=== PATIENT | male | born 1985 | race Caucasian/White ===

== ENCOUNTER 2018-10-11 16:32 | Emergency (ER) | payer SELFPAY ==
[~2018-10-11] VITALS: Ht 185.4 cm; Wt 75.0 kg
[2018-10-11 16:52] VITALS: BP 154/74; PULSE 108; RESP 18; Ht 185.4 cm; Wt 75.0 kg
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
[2018-10-11] MEDS ORDERED: IBUP800T48 PO (22:18)
[2018-10-13] MEDS ORDERED: AMOX1TAB10 PO (11:04)
[2018-10-13] MEDS ORDERED: SULF1TAB31 PO (11:04)
== END 2018-10-12 01:34 | disposition left against medical advice (07) ==
LOC: FTE 16:32
DX: S00.11XA Contusion of right eyelid and periocular area, initial encounter (principal); Y04.8XXA Assault by other bodily force, initial encounter
CPT/HCPCS: 70450; 70486; 72125

== ENCOUNTER 2018-10-13 09:59 | Emergency (ER) | payer SELFPAY ==
[~2018-10-13] VITALS: Ht 152.4 cm; Wt 77.1 kg
[~2018-10-13 09:59] MED LIST: IBUP800T48 PO
[2018-10-13 10:00] VITALS: BP 121/71; PULSE 78; RESP 18; Ht 152.4 cm; Wt 77.1 kg
[2018-10-13] MEDS ORDERED: TRIMETHOPRIM/SULFAMETHOX (DS) TAB PO ONE (11:00)
[2018-10-13] MEDS ORDERED: SOD CHLORIDE 0.9% 1,000 ML IV ONE (11:00)
[2018-10-13] MEDS ORDERED: AMOXICILLIN/CLAV 875 MG TAB PO ONE (11:00)
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
[2018-10-13] MEDS ORDERED: AMOX1TAB10 PO (11:04)
[2018-10-13] MEDS ORDERED: SULF1TAB31 PO (11:04)
== END 2018-10-13 11:16 | disposition left against medical advice (07) ==
LOC: FTE 09:59
DX: S00.11XA Contusion of right eyelid and periocular area, initial encounter (principal); H44.001 Unspecified purulent endophthalmitis, right eye; F17.210 Nicotine dependence, cigarettes, uncomplicated; Y08.89XA Assault by other specified means, initial encounter
CPT/HCPCS: 99283; J7030

== ENCOUNTER 2018-10-23 11:13 | Emergency (ER) | payer SELFPAY ==
[2018-10-13 10:00] VITALS: BMI 33.2
[~2018-10-23 11:13] MED LIST changes: +AMOX1TAB10 PO; +SULF1TAB31 PO
== END 2018-10-23 11:49 | disposition left against medical advice (07) ==
LOC: E/R 11:13
DX: Z53.21 Procedure and treatment not carried out due to patient leaving prior to being seen by health care provider (principal)

== ENCOUNTER 2018-12-17 11:16 | Emergency (ER) | payer SELFPAY ==
[~2018-12-17] VITALS: Wt 80.0 kg
[2018-12-17 11:19] VITALS: BP 160/78; PULSE 81; RESP 18
== END 2018-12-17 12:51 | disposition left against medical advice (07) ==
LOC: FTE 11:16
DX: Z53.21 Procedure and treatment not carried out due to patient leaving prior to being seen by health care provider (principal)

== ENCOUNTER 2018-12-22 21:33 | Emergency (ER) | payer BC ==
[~2018-12-22] VITALS: Ht 182.9 cm; Wt 70.4 kg
[2018-12-22 21:42] VITALS: BP 121/83; Ht 182.9 cm; Wt 70.4 kg
[2018-12-22] MEDS ORDERED: AMOX500C2 PO (23:25)
[2018-12-22] MEDS ORDERED: IBUP-1542 PO (23:25)
[2018-12-23 00:39] VITALS: PULSE 75; RESP 20
--- NOTE | 2018-12-23 00:57 | ERD ---
ER Documentation Chief Complaint Chief Complaint toothache x 3 days HPI 33-year-old male presented to the emergency department complaining of right upper molar pain intermittently for the past 3 days. He reports a sharp sensation which is constant and rated 8/10 in severity. He denies any fevers. He tried no medication for relief of symptoms. He denies any fevers, chills, or other symptoms at this time. ROS All systems reviewed and are negative except as per history of present illness. Medications Home Meds Active Scripts Ibuprofen* (Motrin*) 600 Mg Tab, 600 MG PO Q6, #30 TAB Prov:MARLEN ALVARADO PA-C 12/22/18 Amoxicillin* (Amoxicillin*) 500 Mg Cap, 500 MG PO TID for 10 Days, CAP Prov:MARLEN ALVARADO PA-C 12/22/18 Sulfamethoxazole/Trimethoprim* (Bactrim Ds* Tablet) 1 Each Tablet, 1 TAB PO BID, #20 TAB Prov:TRINA ONEIL PA-C 10/13/18 Amoxicillin/Potassium Clav (Amox-Clav 875-125 mg Tablet) 875-125 mg Tab, 1 TAB PO BID for 10 Days, #20 TAB Prov:TRINA OENIL PA-C 10/13/18 Ibuprofen* (Motrin*) 800 Mg Tab, 800 MG PO Q6H PRN for PAIN AND OR ELEVATED TEMP, #30 TAB Prov:BORIS VILLEGAS 10/11/18 Allergies Allergies: Coded Allergies: No Known Allergy (Unverified , 12/22/18) PMhx/Soc Medical and Surgical Hx: pt denies Medical Hx, pt denies Surgical Hx Hx Alcohol Use: No Hx Substance Use: Yes (MARIJUANA, METH) Hx Tobacco Use: No Smoking Status: Current some day smoker FmHx Family History: No diabetes Physical Exam Vitals Vital Signs Date Temp Pulse Resp B/P (MAP) Pulse Ox O2 O2 Flow FiO2 Time Delivery Rate 12/23/18 99.2 75 20 97 Room Air 00:39 12/22/18 99.3 71 16 121/83 100 21:42 (96) Physical Exam Const: No acute distress Head: Atraumatic Eyes: Normal Conjunctiva ENT: Normal External Ears, Nose and Mouth. Poor dentition. Missing teeth noted to the right upper molar region. Possible early dental abscess noted to the right upper molars. Neck: Full range of motion. No meningismus. Resp: Clear to auscultation bilaterally Cardio: Regular rate and rhythm, no murmurs Skin: No petechiae or rashes Back: No midline or flank tenderness Ext: No cyanosis, or edema Neur: Awake and alert Psych: Normal Mood and Affect Procedures/MDM 33-year-old male presenting to the emergency department complaining of dental pain. Examination is consistent with possible early dental abscess. No evidence of facial cellulitis. There is no tenderness to the mandibular region. I doubt sepsis. Patient is nontoxic and well-appearing. Patient is stable appropriate for discharge and further outpatient management. He was in agreement with the diagnosis, plan, need for follow-up, return precautions. All questions and concerns were addressed prior to discharge. Departure Diagnosis: Primary Impression: Pain, dental Condition: Fair Patient Instructions: Dental Pain Additional Instructions: Call your primary care doctor TOMORROW for an appointment during the next 1-2 days.See the doctor sooner or return here if your condition worsens before your appointment time. MARLEN ALVARADO PA-C Dec 23, 2018 00:57
== END 2018-12-23 00:40 | disposition home or self-care (01) ==
LOC: FTE 21:33
DX: K08.89 Other specified disorders of teeth and supporting structures (principal); F17.210 Nicotine dependence, cigarettes, uncomplicated
CPT/HCPCS: 99283

== ENCOUNTER 2019-02-09 05:15 | Emergency (ER) | payer BC ==
[~2019-02-09] VITALS: Ht 180.3 cm; Wt 69.9 kg
[~2019-02-09 05:15] MED LIST changes: +AMOX500C2 PO; +IBUP-1542 PO
[2019-02-09 05:22] VITALS: BP 144/88; PULSE 94; RESP 19; Ht 180.3 cm; Wt 69.9 kg
--- NOTE | 2019-02-09 05:42 | ERD ---
ER Documentation Chief Complaint Chief Complaint MED REFILL- ANTI-DEPRESSANT MEDS; NO SI/HI HPI This is a 33-year-old male who presents here in the emergency department asking for a refill of his Banophen and Risperdal. Denies auditory/visual hallucinations/delusions. Not suicidal. Not homicidal. Has the capacity to decide for himself. Denies headache, head injury, loss of consciousness, dizziness, neck pain, neck stiffness, throat pain, difficulty swallowing, difficulty breathing lying flat, shoulder pain, chest pain, back pain, abdominal pain, nausea, vomiting, constipation, diarrhea, urinary symptoms, loss of bowel and bladder control, trauma, injury, falls, difficulty walking due to pain, numbness or tingling sensation, calf pain, recent travel, recent major surgery in the last 3 weeks, calf pain, recent long travel, recent exposure to any illness, recent antibiotic use in the last 3 months, fever, chills, seizures. Past medical history: Surgical history: Social: Denies smoking, use of alcoholic beverages, use of illegal drugs. ROS All systems reviewed and are negative except as per history of present illness. Medications Home Meds Active Scripts Ibuprofen* (Motrin*) 600 Mg Tab, 600 MG PO Q6, #30 TAB Prov:MARLEN ALVARADO PA-C 12/22/18 Amoxicillin* (Amoxicillin*) 500 Mg Cap, 500 MG PO TID for 10 Days, CAP Prov:MARLEN ALVARADO PA-C 12/22/18 Sulfamethoxazole/Trimethoprim* (Bactrim Ds* Tablet) 1 Each Tablet, 1 TAB PO BID, #20 TAB Prov:TRINA ONEIL PA-C 10/13/18 Amoxicillin/Potassium Clav (Amox-Clav 875-125 mg Tablet) 875-125 mg Tab, 1 TAB PO BID for 10 Days, #20 TAB Prov:TRINA ONEIL PA-C 10/13/18 Ibuprofen* (Motrin*) 800 Mg Tab, 800 MG PO Q6H PRN for PAIN AND OR ELEVATED TEMP, #30 TAB Prov:BORIS VILLEGAS 10/11/18 Allergies Allergies: Coded Allergies: No Known Allergy (Unverified , 12/22/18) PMhx/Soc History of Surgery: No Anesthesia Reaction: No Hx Neurological Disorder: No Hx Respiratory Disorders: No Hx Cardiac Disorders: No Hx Psychiatric Problems: No Hx Miscellaneous Medical Probl: No Hx Alcohol Use: Yes Hx Substance Use: Yes (METHAMPHETAMINE) Hx Tobacco Use: Yes Physical Exam Vitals Vital Signs Date Temp Pulse Resp B/P (MAP) Pulse Ox O2 O2 Flow FiO2 Time Delivery Rate 02/09/19 98.9 94 19 144/88 95 05:22 (106) Physical Exam Const: No acute distress Head: Atraumatic Eyes: Normal Conjunctiva ENT: Normal External Ears, Nose and Mouth. Neck: Full range of motion. No meningismus. Resp: Clear to auscultation bilaterally Cardio: Regular rate and rhythm, no murmurs Abd: Soft, non tender, non distended. Normal bowel sounds Skin: No petechiae or rashes Back: No midline or flank tenderness Ext: No cyanosis, or edema Neur: Awake and alert. Romberg test is negative. No neurological deficits. Psych: Normal Mood and Affect. Denies auditory/visual hallucinations/delusions. Not suicidal. Not homicidal. Has the capacity to decide for himself. Procedures/MDM Diagnostic tests: Clinical exam. Treatment: Not applicable. Re-evaluation: Not applicable. Differential diagnosis I have low suspicion for suicidal ideation, homicidal ideation, 5150. Final diagnosis: Medication refill. Prescription: Risperdal. Banophen. Follow-up with PCP in the next 24-48 hours. Follow-up with your psychiatrist in the next 24 to 48 hours. Come back here in the emergency department for any new symptoms or any worsening symptoms. All questions and concerns were answered. Patient and family members verbalized understanding and agreed with plan of care. Hemodynamically stable on discharge. Departure Diagnosis: Primary Impression: Encounter for medication refill Condition: Stable Additional Instructions: Follow-up with PCP in the next 24-48 hours. Follow-up with your psychiatrist in the next 24 to 48 hours. Come back here in the emergency department for any new symptoms or any worsening symptoms. BORIS VILLEGAS Feb 09, 2019 05:42
== END 2019-02-09 06:00 | disposition home or self-care (01) ==
LOC: FTE 05:15 → MERGE 05:15 → FTE 06:00
DX: Z76.0 Encounter for issue of repeat prescription (principal); Z87.891 Personal history of nicotine dependence
CPT/HCPCS: 99281

== ENCOUNTER 2019-02-11 00:18 | Emergency (ER) | payer BC ==
[~2019-02-11] VITALS: Ht 180.3 cm; Wt 68.9 kg
[2019-02-11 00:23] VITALS: Ht 180.3 cm; Wt 68.9 kg
[2019-02-11 02:25] VITALS: BP 135/89; PULSE 79; RESP 16
--- NOTE | 2019-02-11 04:20 | ERD ---
ER Documentation Chief Complaint Chief Complaint STATES NEEDS TO BE ADMITED TO A DETOX FACILITY, WANTS HALFWAY PLACEMENT HPI This is a 33-year-old gentleman who is homeless who presents to the emergency stating that he would like to get a handout of prison information and would like some food and drink. The patient denies any suicidal homicidal ideation. He denies any fevers chills headache chest pain or shortness of breath. Patient otherwise has no complaints. ROS All systems reviewed and are negative except as per history of present illness. Medications Home Meds Active Scripts Ibuprofen* (Motrin*) 600 Mg Tab, 600 MG PO Q6, #30 TAB Prov:MARLEN ALVARADO PA-C 12/22/18 Amoxicillin* (Amoxicillin*) 500 Mg Cap, 500 MG PO TID for 10 Days, CAP Prov:MARLEN ALVARADO PA-C 12/22/18 Sulfamethoxazole/Trimethoprim* (Bactrim Ds* Tablet) 1 Each Tablet, 1 TAB PO BID, #20 TAB Prov:TRINA ONEIL PA-C 10/13/18 Amoxicillin/Potassium Clav (Amox-Clav 875-125 mg Tablet) 875-125 mg Tab, 1 TAB PO BID for 10 Days, #20 TAB Prov:TRINA ONEIL PA-C 10/13/18 Ibuprofen* (Motrin*) 800 Mg Tab, 800 MG PO Q6H PRN for PAIN AND OR ELEVATED TEMP, #30 TAB Prov:BORIS VILLEGAS 10/11/18 Allergies Allergies: Coded Allergies: No Known Allergy (Unverified , 12/22/18) PMhx/Soc History of Surgery: No Anesthesia Reaction: No Hx Neurological Disorder: No Hx Respiratory Disorders: No Hx Cardiac Disorders: No Hx Psychiatric Problems: Yes (bipolar,depression,schizo) Hx Miscellaneous Medical Probl: No Hx Alcohol Use: Yes Hx Substance Use: Yes (METHAMPHETAMINE) Hx Tobacco Use: Yes Smoking Status: Current every day smoker FmHx Family History: No diabetes Physical Exam Vitals Vital Signs Date Temp Pulse Resp B/P (MAP) Pulse Ox O2 O2 Flow FiO2 Time Delivery Rate 02/11/19 79 16 135/89 99 Room Air 02:25 (104) 02/11/19 97.8 72 22 124/93 99 00:23 (103) Physical Exam General: Well developed, well nourished, no acute distress Head: Normocephalic, atraumatic. Eyes: EOM intact ENT: Moist mucous membranes Neck: Full ROM Respiratory: No respiratory distress Cardiovascular: Well perfused distally Abdominal: Nondistended : Deferred MSK: No edema, no unilateral swelling, 5/5 strength Neurologic: Alert and oriented, moving all extremities, normal speech, steady gait Skin: No rash Psych: Normal mood Procedures/MDM The patient has received a medical screening examination reveals no signs of an emergent medical condition. 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 He is refusing to speak to a high school social studies tutor. He is not a danger to himself or others. Homeless discharge process initiated per nursing. The patient does not have an identifiable emergent medical condition that warrants inpatient hospitalization at this time. The patient is deemed safe for discharge with outpatient follow-up. We discussed follow up with the patient's primary care doctor within 24 to 48 hours as needed. We also discussed return to the emergency room for worsening symptoms or worsening condition. Outpatient referral: None required Discharge Medications: None required Departure Diagnosis: Primary Impression: Encounter for medical screening examination Condition: Stable Patient Instructions: Medical Screening Exam, Nonurgent Referrals: [facility] YOU HAVE RECEIVED A MEDICAL SCREENING EXAM AND THE RESULTS INDICATE THAT YOU DO NOT HAVE A CONDITION THAT REQUIRES URGENT TREATMENT IN THE EMERGENCY DEPARTMENT. FURTHER EVALUATION AND TREATMENT OF YOUR CONDITION CAN WAIT UNTIL YOU ARE SEEN IN YOUR DOCTORS OFFICE WITHIN THE NEXT 1-2 DAYS. IT IS YOUR RESPONSIBILITY TO MAKE AN APPOINTMENT FOR FOLOW-UP CARE. IF YOU HAVE A PRIMARY DOCTOR --you should call your primary doctor and schedule an appointment IF YOU DO NOT HAVE A PRIMARY DOCTOR YOU CAN CALL OUR PHYSICIAN REFERRAL HOTLINE AT IF YOU CAN NOT AFFORD TO SEE A PHYSICIAN YOU CAN CHOSE FROM THE FOLLOWING [facility] [address] [facility] [address] [facility] [address] [facility] [address] [facility] [address] [facility] [address] [facility]. [facility] YOU HAVE RECEIVED A MEDICAL SCREENING EXAM AND THE RESULTS INDICATE THAT YOU DO NOT HAVE A CONDITION THAT REQUIRES URGENT TREATMENT IN THE EMERGENCY DEPARTMENT. FURTHER EVALUATION AND TREATMENT OF YOUR CONDITION CAN WAIT UNTIL YOU ARE SEEN IN YOUR DOCTORS OFFICE WITHIN THE NEXT 1-2 DAYS. IT IS YOUR RESPONSIBILITY TO MAKE AN APPOINTMENT FOR FOLOW-UP CARE. IF YOU HAVE A PRIMARY DOCTOR --you should call your primary doctor and schedule and appointment IF YOU DO NOT HAVE A PRIMARY DOCTOR YOU CAN CALL OUR PHYSICIAN REFERRAL HOTLINE AT . IF YOU CAN NOT AFFORD TO SEE A PHYSICIAN YOU CAN CHOSE FROM THE FOLLOWING [facility] INSTITUTIONS: [facility] [address] [place] [address] [facility] [address] [place] [address] [facility] [address] [place] [address] Additional Instructions: Call your primary care doctor TOMORROW for an appointment during the next 1 WEEK.Tell the lumber tying machine operator that you were referred from this facility.See the doctor sooner or return here if your condition worsens before your appointment time. PRINCE ROSE MD Feb 11, 2019 04:20
[2019-02-11] MEDS ORDERED: RISP2TAB93 PO (10:02)
== END 2019-02-11 02:26 | disposition home or self-care (01) ==
LOC: E/R 00:18
DX: Z00.00 Encounter for general adult medical examination without abnormal findings (principal); F17.210 Nicotine dependence, cigarettes, uncomplicated
CPT/HCPCS: 99282

== ENCOUNTER 2019-02-11 08:31 | Emergency (ER) | payer BC ==
[~2019-02-11] VITALS: Ht 180.3 cm; Wt 70.4 kg
[2019-02-11 08:33] VITALS: BP 115/73; PULSE 71; RESP 20; Ht 180.3 cm; Wt 70.4 kg
[2019-02-11] MEDS ORDERED: RISP2TAB93 PO (10:02)
[2019-02-11] MEDS ORDERED: RISPERIDONE 2 MG TAB PO ONE (10:30)
--- NOTE | 2019-02-14 13:16 | ERD ---
ER Documentation Chief Complaint Chief Complaint REQUESTING REFILL FOR RISPERDAL HPI This is a 33-year-old male that had recently just been seen and had a psychiatric evaluation requesting a medication refill for his Risperdal. The patient denies any suicidal homicidal thoughts ideations. He states that he takes 2 mg of Risperdal once daily. He denies any auditory tactile visual hallucinations. He has no chest pain. Has no shortness of breath. He denies any abdominal pain. He denies any back pain ROS All systems reviewed and are negative except as per history of present illness. Medications Home Meds Active Scripts Risperidone* (Risperdal*) 2 Mg Tablet, 2 MG PO DAILY, #20 TAB Prov:BEA PINTO MD 02/11/19 Ibuprofen* (Motrin*) 600 Mg Tab, 600 MG PO Q6, #30 TAB Prov:MARLEN ALVARADO PA-C 12/22/18 Amoxicillin* (Amoxicillin*) 500 Mg Cap, 500 MG PO TID for 10 Days, CAP Prov:MARLEN ALVARADO PA-C 12/22/18 Sulfamethoxazole/Trimethoprim* (Bactrim Ds* Tablet) 1 Each Tablet, 1 TAB PO BID, #20 TAB Prov:TRINA ONEIL PA-C 10/13/18 Amoxicillin/Potassium Clav (Amox-Clav 875-125 mg Tablet) 875-125 mg Tab, 1 TAB PO BID for 10 Days, #20 TAB Prov:TRINA ONEIL PA-C 10/13/18 Ibuprofen* (Motrin*) 800 Mg Tab, 800 MG PO Q6H PRN for PAIN AND OR ELEVATED TEMP, #30 TAB Prov:BORIS VILLEGAS 10/11/18 Allergies Allergies: Coded Allergies: No Known Allergy (Unverified , 12/22/18) PMhx/Soc Medical and Surgical Hx: pt denies Surgical Hx History of Surgery: No Anesthesia Reaction: No Hx Neurological Disorder: No Hx Respiratory Disorders: No Hx Cardiac Disorders: No Hx Psychiatric Problems: Yes (bipolar,depression,schizo) Hx Miscellaneous Medical Probl: No Hx Alcohol Use: Yes Hx Substance Use: Yes (METHAMPHETAMINE) Hx Tobacco Use: Yes Smoking Status: Current every day smoker Physical Exam Vitals Vital Signs Date Temp Pulse Resp B/P (MAP) Pulse Ox O2 O2 Flow FiO2 Time Delivery Rate 02/11/19 97.4 71 20 115/73 100 08:33 (87) Physical Exam Constitutional:Well-developed. Disheveled Respiratory: Not using accessory muscles of respiration.Lungs were clear to auscultation bilaterally. No rhonchi. No rales. No wheezing. Cardiovascular: Regular rate regular rhythm.No murmurs. No rubs were appreciated.S1, S2 normal. Distal pulses are palpable 2+ bilaterally. GI: Abdomen was soft. Nontender. Non Distended. No pulsatile abdominal masses or bruits. No rebound. No guarding. Bowel sounds were present and normal. NEURO: Patient was alert, awake, orientated x3.No facial droop. Gait observed and normal with no ataxia.Speech had regular rate and rhythm. No focal neurological deficits. PSYCH: Patient had no auditory tactile visual hallucinations. Patient is very pleasant. Had no tangential thinking. No suicidal homicidal thoughts or ideations. Results 24 hrs Current Medications Medications Dose Sig/Tyree Start Time Status Last (Trade) Ordered Route PRN Stop Time Admin Dose Reason Admin Risperidone 2 mg ONCE ONCE 02/11/19 DC 02/11/19 (Risperdal) PO 10:30 10:19 02/11/19 10:31 Procedures/MDM This is a 33-year-old male presented to the emergency department for medication refill. The patient indicates he had not had his risperidone for over 24 hours. He did receive 2 mg p.o. in the emergency department. I did provide a prescription for the patient for the next 10 days until the patient is able to follow-up on an outpatient basis with his psychiatrist. Patient did not appear to be a threat to himself or others. The patient was discharged home in fair condition. They were instructed to return to the emergency department at any time if there was any worsening of their condition. The patient stated they would follow up with their PCP in the next 24-48 hours to initiate a suitable medication regimen under the care of their PCP as well as to allow their PCP to monitor any drug reactions. The patient was discharged home with prescriptions after they gave informed consent to the new medication. They were also fully informed by myself on the adverse effects and adverse drug interactions in order to provide adequate safeguards to prevent possible adverse reactions to medications. Departure Diagnosis: Primary Impression: Medicine refill Condition: Fair Referrals: BI URIAS (PCP) BEA PINTO MD Feb 14, 2019 13:16
== END 2019-02-11 10:10 | disposition home or self-care (01) ==
LOC: E/R 08:31
DX: Z76.0 Encounter for issue of repeat prescription (principal); F17.210 Nicotine dependence, cigarettes, uncomplicated
CPT/HCPCS: Z7502; Z7610; 99283

== ENCOUNTER 2019-02-12 03:46 | Emergency (ER) | payer BC ==
[~2019-02-12] VITALS: Ht 180.3 cm; Wt 71.6 kg
[~2019-02-12 03:46] MED LIST changes: +RISP2TAB93 PO
[2019-02-12 03:59] VITALS: Ht 180.3 cm; Wt 71.6 kg
--- NOTE | 2019-02-12 05:25 | ERD ---
ER Documentation Chief Complaint Chief Complaint low back pain x 2 days HPI This is a 33-year-old male says low back pain for 2 days. He also said he is homeless. He says it is comfortable place to sleeps with his things on the stone. Denies fevers chills nausea vomiting. Denies any other current complaints. ROS All systems reviewed and are negative except as per history of present illness. Medications Home Meds Active Scripts Risperidone* (Risperdal*) 2 Mg Tablet, 2 MG PO DAILY, #20 TAB Prov:BEA PINTO MD 02/11/19 Ibuprofen* (Motrin*) 600 Mg Tab, 600 MG PO Q6, #30 TAB Prov:MARLEN ALVARADO PA-C 12/22/18 Amoxicillin* (Amoxicillin*) 500 Mg Cap, 500 MG PO TID for 10 Days, CAP Prov:MARLEN ALVARADO PA-C 12/22/18 Sulfamethoxazole/Trimethoprim* (Bactrim Ds* Tablet) 1 Each Tablet, 1 TAB PO BID, #20 TAB Prov:TRINA ONEIL PA-C 10/13/18 Amoxicillin/Potassium Clav (Amox-Clav 875-125 mg Tablet) 875-125 mg Tab, 1 TAB PO BID for 10 Days, #20 TAB Prov:TRINA ONEIL PA-C 10/13/18 Ibuprofen* (Motrin*) 800 Mg Tab, 800 MG PO Q6H PRN for PAIN AND OR ELEVATED TEMP, #30 TAB Prov:BORIS VILLEGAS 10/11/18 Allergies Allergies: Coded Allergies: No Known Allergy (Unverified , 12/22/18) PMhx/Soc History of Surgery: No Anesthesia Reaction: No Hx Neurological Disorder: No Hx Respiratory Disorders: No Hx Cardiac Disorders: No Hx Psychiatric Problems: Yes (bipolar,depression,schizo) Hx Miscellaneous Medical Probl: No Hx Alcohol Use: Yes Hx Substance Use: Yes (METHAMPHETAMINE) Hx Tobacco Use: Yes Smoking Status: Smoker,current status unk Physical Exam Vitals Vital Signs Date Temp Pulse Resp B/P (MAP) Pulse Ox O2 O2 Flow FiO2 Time Delivery Rate 02/12/19 97.6 62 18 113/72 100 03:59 (86) Physical Exam Const: No acute distress Head: Atraumatic Eyes: Normal Conjunctiva ENT: Normal External Ears, Nose and Mouth. Neck: Full range of motion. No meningismus. Resp: Clear to auscultation bilaterally Cardio: Regular rate and rhythm, no murmurs Abd: Soft, non tender, non distended. Normal bowel sounds Skin: No petechiae or rashes Back: No midline or flank tenderness Ext: No cyanosis, or edema Neur: Awake and alert Psych: Normal Mood and Affect Procedures/MDM Patient's musculoskeletal symptoms have stabilized while they have been evaluated in the department and are appropriate for outpatient work up. No evidence of cauda equina, cord compression, infiltrative, or infectious etiology. Pending social work consult Departure Diagnosis: Primary Impression: Back pain Back pain location: back pain in unspecified location Chronicity: unspecified Back pain laterality: unspecified Qualified Codes: M54.9 - Dorsalgia, unspecified Condition: Stable Patient Instructions: Back Pain (Acute Or Chronic) MARLEN OSBORNE Feb 12, 2019 05:25
[2019-02-12 08:40] VITALS: BP 123/76; PULSE 72; RESP 18
== END 2019-02-12 08:59 | disposition home or self-care (01) ==
LOC: E/R 03:46
DX: M54.5 Low back pain (principal); Z87.891 Personal history of nicotine dependence
CPT/HCPCS: Z7502; Z7610; 99283

== ENCOUNTER 2019-02-15 17:08 | Emergency (ER) | payer BC ==
[~2019-02-15] VITALS: Ht 180.3 cm; Wt 70.6 kg
[2019-02-15 17:34] VITALS: BP 119/70; PULSE 97; RESP 18; Ht 180.3 cm; Wt 70.6 kg
[2019-02-15] MEDS ORDERED: CETI10CA PO (19:14)
[2019-02-15] MEDS ORDERED: GUAI-637 PO (19:14)
--- NOTE | 2019-02-15 19:20 | ERD ---
ER Documentation Chief Complaint Chief Complaint C/O COLD SYMPTOMS, COUGH, RUNNY NOSE FOR 3 DAYS HPI Patient is a 33-year-old male with past medical history of bipolar disease, schizophrenia, who presents the ER for concerns of cough and congestion x3 days. Patient reports tactile fevers. Patient not taking any medications for symptoms. Patient has no nausea, vomiting or abdominal pain, diarrhea, chest pain, shortness of breath. Patient has neck pain or neck stiffness. No recent sick contacts. No recent travel. ROS All systems reviewed and are negative except as per history of present illness. Medications Home Meds Active Scripts Cetirizine Hcl* (Zyrtec*) 10 Mg Capsule, 10 MG PO DAILY, #10 TAB.CHEW Prov:ZANE JONES PA-C 02/15/19 Guaifenesin* (Robitussin*) 100 Mg/5 Ml Syrup, 100 MG PO Q6H PRN for COUGH, #4 OZ Prov:ZANE JONES PA-C 02/15/19 Risperidone* (Risperdal*) 2 Mg Tablet, 2 MG PO DAILY, #20 TAB Prov:BEA PINTO MD 02/11/19 Ibuprofen* (Motrin*) 600 Mg Tab, 600 MG PO Q6, #30 TAB Prov:MARLEN ALVARADO PA-C 12/22/18 Amoxicillin* (Amoxicillin*) 500 Mg Cap, 500 MG PO TID for 10 Days, CAP Prov:MARLEN ALVARADO PA-C 12/22/18 Sulfamethoxazole/Trimethoprim* (Bactrim Ds* Tablet) 1 Each Tablet, 1 TAB PO BID, #20 TAB Prov:TRINA ONEIL PA-C 10/13/18 Amoxicillin/Potassium Clav (Amox-Clav 875-125 mg Tablet) 875-125 mg Tab, 1 TAB PO BID for 10 Days, #20 TAB Prov:TRINA ONEIL PA-C 10/13/18 Ibuprofen* (Motrin*) 800 Mg Tab, 800 MG PO Q6H PRN for PAIN AND OR ELEVATED TEMP, #30 TAB Prov:BORIS VILLEGAS 10/11/18 Allergies Allergies: Coded Allergies: No Known Allergy (Unverified , 12/22/18) PMhx/Soc History of Surgery: No Anesthesia Reaction: No Hx Neurological Disorder: No Hx Respiratory Disorders: No Hx Cardiac Disorders: No Hx Psychiatric Problems: Yes (bipolar,depression,schizo) Hx Miscellaneous Medical Probl: No Hx Alcohol Use: Yes Hx Substance Use: Yes (METHAMPHETAMINE) Hx Tobacco Use: Yes Smoking Status: Current every day smoker FmHx Family History: No diabetes Physical Exam Vitals Vital Signs Date Temp Pulse Resp B/P (MAP) Pulse Ox O2 O2 Flow FiO2 Time Delivery Rate 02/15/19 97.6 97 18 119/70 94 17:34 (86) Physical Exam GENERAL: Well-developed, well-nourished male. Appears in no acute distress. HEAD: Normocephalic, atraumatic. No deformities or ecchymosis. EYE: Pupils equal, round, and reactive to light. EOMs intact. No conjunctival erythema. No eye discharge. ENT: External ear without any masses or tenderness. Auditory canals clear bilaterally. TM visualized bilaterally, non-erythematous, non-bulging. Nasal mucosa pink with no discharge. Oropharynx is pink without any tonsillar erythema or exudates. No uvula deviation. No kissing tonsils. NECK: Supple. No meningismus. Normal ROM of the neck. LUNG: Clear to auscultation bilaterally. No rhonchi, wheezing, rales or coarse breath sounds. HEART: Regular rate and rhythm. No murmurs, rubs or gallops. EXTREMITES: Equal pulses bilaterally. No peripheral clubbing, cyanosis or edema. No unilateral leg swelling. NEUROLOGIC: Alert and oriented to person, place and time. Moving all four extremities. 5/5 strength in all extremities. Normal speech. Steady gait SKIN: Normal color. Warm and dry. No rashes or lesions. Procedures/MDM MEDICAL DECISION MAKING: This is a 33-year-old male presents ER for concerns of nasal congestion, cough and tactile fevers x3 days. Vital signs were reviewed. Patient was afebrile. Patient was not hypoxic. ENT exam was normal. Lung exam was normal. Review of the ED i.e. report shows that this is the patient's 11th visit to the emergency department in the last 12 months. Patient was seen here 5 times in the last week for different concerns. Given these findings, the patients presentation is most consistent with viral URI. Low suspicion for pneumonia, meningitis, sinusitis, otitis externa, acute otitis media, strep pharyngitis, epiglottitis o r peritonsillar abscess. Patient was nontoxic, [id number] prior to discharge. PRESCRIPTIONS: Zyrtec, Robitussin cough syrup DISCHARGE: At this time, patient is stable for discharge and outpatient management. Supportive therapies such as OTC throat lozenges, salt water gurgles, popsicles and jello discussed. I have instructed the patient to follow-up with his/her primary care physician in 1-2 days. I have instructed the patient to promptly return to the ER for any new or worsening symptoms including increased pain, swelling, fever, nausea, vomiting, weakness or difficulty breathing. The patient and/or family expressed understanding of and agreement with this plan. All questions were answered. Home care instructions were provided. Disclaimer: Inadvertent spelling and grammatical errors are likely due to EHR/dictation software use and do not reflect on the overall quality of patient care. Also, please note that the electronic time recorded on this note does not necessarily reflect the actual time of the patient encounter. Departure Diagnosis: Primary Impression: Common cold Condition: Fair Patient Instructions: Adult Self-Care for Colds Referrals: BI URIAS (PCP) Additional Instructions: Call your primary care doctor TOMORROW for an appointment during the next 1-2 days.See the doctor sooner or return here if your condition worsens before your appointment time. ZANE JONES PA-C Feb 15, 2019 19:20
== END 2019-02-15 19:32 | disposition home or self-care (01) ==
LOC: FTE 17:08
DX: J00 Acute nasopharyngitis [common cold] (principal); F17.210 Nicotine dependence, cigarettes, uncomplicated
CPT/HCPCS: 99282

== ENCOUNTER 2019-02-20 02:10 | Emergency (ER) | payer BC ==
[~2019-02-20] VITALS: Ht 180.3 cm; Wt 70.1 kg
[~2019-02-20 02:10] MED LIST changes: +CETI10CA PO; +GUAI-637 PO
[2019-02-20 02:22] VITALS: BP 158/67; PULSE 77; RESP 18; Ht 180.3 cm; Wt 70.1 kg
[2019-02-20] MEDS ORDERED: ONDANSETRON (ODT) 4 MG TAB ODT STA (03:22)
[2019-02-20] MEDS ORDERED: ONDA4TAB8 PO (04:31)
--- NOTE | 2019-02-21 20:09 | ERD ---
ER Documentation Chief Complaint Chief Complaint abdominal pain/vomiting x 3 days HPI 33yo M presents with complaint of epigastric abdominal pain and vomiting x 3 days, also requesting a place to sleep. Pt with hx of meth and marijuana use, last used yesterday per pt. Pt states 1 episode vomiting yesterday, with vomiting resolved today. Has not taken any medication to alleviate his symptoms. Denies SOB, Chest pain, diarrhea. ROS All systems reviewed and are negative except as per history of present illness. Medications Home Meds Active Scripts Ondansetron Hcl* (Zofran*) 4 Mg Tablet, 4 MG PO Q6H for NAUSEA AND/OR VOMITING, #10 TAB Prov:LEW MAXWELL PA-C 02/20/19 Cetirizine Hcl* (Zyrtec*) 10 Mg Capsule, 10 MG PO DAILY, #10 TAB.CHEW Prov:ZANE JONES PA-C 02/15/19 Guaifenesin* (Robitussin*) 100 Mg/5 Ml Syrup, 100 MG PO Q6H PRN for COUGH, #4 OZ Prov:ZANE JONES PA-C 02/15/19 Risperidone* (Risperdal*) 2 Mg Tablet, 2 MG PO DAILY, #20 TAB Prov:BEA PINTO MD 02/11/19 Ibuprofen* (Motrin*) 600 Mg Tab, 600 MG PO Q6, #30 TAB Prov:MARLEN ALVARADO PA-C 12/22/18 Amoxicillin* (Amoxicillin*) 500 Mg Cap, 500 MG PO TID for 10 Days, CAP Prov:MARLEN ALVARADOC 12/22/18 Sulfamethoxazole/Trimethoprim* (Bactrim Ds* Tablet) 1 Each Tablet, 1 TAB PO BID, #20 TAB Prov:TRINA ONEILC 10/13/18 Amoxicillin/Potassium Clav (Amox-Clav 875-125 mg Tablet) 875-125 mg Tab, 1 TAB PO BID for 10 Days, #20 TAB Prov:TRINA ONEIL PA-C 10/13/18 Ibuprofen* (Motrin*) 800 Mg Tab, 800 MG PO Q6H PRN for PAIN AND OR ELEVATED TEMP, #30 TAB Prov:BORIS VILLEGAS 10/11/18 Allergies Allergies: Coded Allergies: No Known Allergy (Unverified , 12/22/18) PMhx/Soc History of Surgery: No Anesthesia Reaction: No Hx Neurological Disorder: No Hx Respiratory Disorders: No Hx Cardiac Disorders: No Hx Psychiatric Problems: Yes (bipolar,depression,schizo) Hx Miscellaneous Medical Probl: No Hx Alcohol Use: Yes Hx Substance Use: Yes (METHAMPHETAMINE) Hx Tobacco Use: Yes Smoking Status: Current every day smoker Physical Exam Vitals Vital Signs Date Temp Pulse Resp B/P (MAP) Pulse Ox O2 O2 Flow FiO2 Time Delivery Rate 02/20/19 97.2 77 18 158/67 99 02:22 (97) Physical Exam GEN: Alert and coherent. Well appearing, non-toxic. No acute distress. Pt napping in exam room. HEAD: Normocephalic, atraumatic. EYES: EOMI. PERRL. No conjunctival injection. No scleral icterus. No Discharge ENT: Nasal passages patent. Moist mucous membranes. No erythema or tonsillar exudates. NECK: Supple. Full range of motion. Trachea midline. No lymphadenopathy. RESP: No tachypnea. Clear to auscultation bilaterally. No wheezing, rales or rhonchi. No accessory muscle use. CV: Regular rate and rhythm. No murmurs, rubs, or gallops. ABD: Soft, non-distended, non-tender. No guarding. No rebound tenderness or rigidity. No masses. Positive bowel sounds in all four quadrants. BACK: Full ROM. No CVA tenderness. EXT: No deformity. No clubbing, cyanosis or edema. Equal pulses x 4. SKIN: Warm and dry. No obvious rashes, erythema, or petechiae. NEURO: Alert and oriented x3. Appropriate speech, mood and affect. Face is symmetric. Speech is normal. CN II-XII intact. Moves all extremities equally. Ambulates with a strong, steady gait. Result Diagram: 02/20/19 0339 02/20/19 0339 Results 24 hrs Laboratory Tests Test 02/20/19 03:39 White Blood Count 6.7 10^3/ul Red Blood Count 4.41 10^6/ul Hemoglobin 12.9 g/dl Hematocrit 39.0 % Mean Corpuscular Volume 88.4 fl Mean Corpuscular Hemoglobin 29.3 pg Mean Corpuscular Hemoglobin Concent 33.1 g/dl Red Cell Distribution Width 13.2 % Platelet Count 283 10^3/UL Mean Platelet Volume 9.2 fl Immature Granulocytes % 0.400 % Neutrophils % 66.7 % Lymphocytes % 23.0 % Monocytes % 6.5 % Eosinophils % 3.0 % Basophils % 0.4 % Nucleated Red Blood Cells % 0.0 /100WBC Immature Granulocytes # 0.030 10^3/ul Neutrophils # 4.5 10^3/ul Lymphocytes # 1.6 10^3/ul Monocytes # 0.4 10^3/ul Eosinophils # 0.2 10^3/ul Basophils # 0.0 10^3/ul Nucleated Red Blood Cells # 0.0 10^3/ul Sodium Level 141 mmol/L Potassium Level 4.1 mmol/L Chloride Level 104 mmol/L Carbon Dioxide Level 31 mmol/L Anion Gap 6 Blood Urea Nitrogen 19 mg/dl Creatinine 0.64 mg/dl Est Glomerular Filtrat Rate mL/min > 60 mL/min Glucose Level 100 mg/dl Calcium Level 8.8 mg/dl Total Bilirubin 0.4 mg/dl Direct Bilirubin 0.00 mg/dl Indirect Bilirubin 0.4 mg/dl Aspartate Amino Transf (AST/SGOT) 29 IU/L Alanine Aminotransferase (ALT/SGPT) 19 IU/L Alkaline Phosphatase 78 IU/L Total Protein 6.8 g/dl Albumin 3.8 g/dl Globulin 3.00 g/dl Albumin/Globulin Ratio 1.26 Lipase 121 U/L Urine Opiates Screen Negative Urine Barbiturates Negative Urine Amphetamines Screen Positive Urine Benzodiazepines Screen Negative Urine Cocaine Screen Negative Urine Cannabinoids Positive Current Medications Medications Dose Sig/Tyree Start Time Status Last (Trade) Ordered Route PRN Stop Time Admin Dose Reason Admin Ondansetron 4 mg ONCE STAT 02/20/19 DC 02/20/19 HCl (Zofran ODT 03:22 03:38 Odt) 02/20/19 03:23 Procedures/MDM MDM: This is a 33yo M well known to the ED who presents with complaint of abdominal pain x [address] to sleep. Pt in no distress, abdominal exam unremarkable with no guarding, no RLQ tenderness. Labs performed all WNL. Social work was called and pt given resources to f/u with social work to find housing/place to sleep. At this time I have low suspicion for acute abdomen or surgical emergency. Pt stable for discharge at this time with prescription for zofran. ED return precautions discussed. Departure Diagnosis: Primary Impression: Abdominal pain Abdominal location: generalized Qualified Codes: R10.84 - Generalized abdominal pain Additional Impression: Nausea Condition: Stable Patient Instructions: Abdominal Pain, Nausea LEW MAXWELL PA-C Feb 21, 2019 20:09
== END 2019-02-20 04:38 | disposition home or self-care (01) ==
LOC: FTE 02:10
DX: R10.84 Generalized abdominal pain (principal); R11.0 Nausea; F17.210 Nicotine dependence, cigarettes, uncomplicated
CPT/HCPCS: 36415; 80053; 80307; 83690; 85025; Z7502; Z7610; 99283